=== PATIENT | female | born 2000 | race Caucasian/White ===

== ENCOUNTER 2020-11-30 09:31 | Emergency (ER) | payer SELFPAY ==
--- NOTE | 2020-11-30 09:56 | EKG REPORT ---
SEVERITY:- BORDERLINE ECG - SINUS RHYTHM : Confirmed by: Colby Camargo MD 30-Nov-2020 09:56:41
--- NOTE | 2020-11-30 10:18 | ER Document Report ---
ED Medical Screen (RME) - General Chief Complaint: Palpitations Stated Complaint: HEART PALPITATIONS Time Seen by Provider: 11/30/20 10:01 - HPI Notes: 11/30/20 10:03 20-year-old female presents to ED for evaluation of palpitations starting yesterday. Notes that she has been tracking them on her watch. Notes that they have not been sustained. Denies cold or cough symptoms. Denies thyroid issues. Denies chest pain. - Related Data Allergies/Adverse Reactions: Penicillins Allergy (Severe, Verified 11/30/20 09:50) Hives cephalexin [From Keflex] Allergy (Verified 11/30/20 09:50) Hives Home Medications: montelukast prn for allergies Past Medical History - Social History Chew tobacco use (# tins/day): No Frequency of alcohol use: Occasional Drug Abuse: None Physical Exam - Vital signs Vitals: Temp Pulse Resp BP Pulse Ox 98.5 F 95 16 148/94 H 100 11/30/20 09:40 11/30/20 09:40 11/30/20 09:40 11/30/20 09:40 11/30/20 09:40 General: No acute distress. Alert and oriented x3. Sitting comfortably in a stretcher. Skin: No jaundice, pallor, petechiae, or rashes. Warm and dry. Heart: Regular rate and rhythm. S1,S2. No murmurs, rubs, or gallops. Lungs: Clear to auscultation bilaterally. No wheezes, rhonchi, rales. Equal chest expansion. No retractions. Abdomen: Soft, nontender to palpation, nondistended. Positive bowel sounds in all 4 quadrants. No masses. No CVA tenderness bilaterally. Back: No midline spinal TTP. No paraspinous muscular TTP. Neuro: GCS 15. Moving all extremities without discomfort. Psych: Mood and affect appropriate. Course - Vital Signs Vital signs: Temp Pulse Resp BP Pulse Ox 98.5 F 95 16 148/94 H 100 11/30/20 09:40 11/30/20 09:40 11/30/20 09:40 11/30/20 09:40 11/30/20 09:40
[2020-11-30 10:30] LABS: ABSOLUTE EOSINOPHILS # (AUTO) 0.1 10^3/uL (0.0-0.6); ABSOLUTE LYMPHOCYTES (AUTO) 1.5 10^3/uL (0.5-4.7); ABSOLUTE MONOCYTES (AUTO) 0.3 10^3/uL (0.1-1.4); ABSOLUTE NEUT (AUTO) 2.6 10^3/uL (1.7-8.2); BASOPHILS % (AUTO) 0.7 % (0-2); EOSINOPHILS % (AUTO) 1.2 % (0-6); HEMATOCRIT 39.3 % (36.0-47.0); HEMOGLOBIN 12.9 g/dL (12.0-15.5); LYMPHOCYTES % (AUTO) 33.9 % (13-45); MEAN CORPUSCULAR HEMOGLOBIN 28.5 pg (27.0-33.4); MEAN CORPUSCULAR HGB CONC 32.8 g/dL (32.0-36.0); MEAN CORPUSCULAR VOLUME 87 fl (80-97); MONOCYTES % (AUTO) 6.4 % (3-13); PLATELET COUNT 243 10^3/uL (150-450); RED BLOOD COUNT 4.53 10^6/uL (3.72-5.28); RED CELL DISTRIBUTION WIDTH 12.7 % (11.5-14.0); SEGMENTED NEUTROPHILS % (AUTO) 57.8 % (42-78); TOTAL CELLS COUNTED % (AUTO) 100 %; WHITE BLOOD COUNT 4.5 10^3/uL (4.0-10.5)
--- NOTE | 2020-11-30 10:49 | ER Document Report ---
ED Cardiac - General Chief Complaint: Palpitations Stated Complaint: HEART PALPITATIONS Time Seen by Provider: 11/30/20 10:01 Mode of Arrival: Ambulatory Information source: Patient - HPI Notes: Patient presents complaint of palpitations. She states that she has had them several times over the last week. She states this morning when she got to work she felt that her heart was racing and they took her vital signs. At that time her pulse was in the 140s. Her blood pressure was 150/90. She states she has no previous history of high blood pressure. No previous history of any type of arrhythmias or heart disease. She has no chronic medical problems. No history of surgeries. She does not take any type of hormones. Patient states she does vape and that she did vape this morning at approximately 7 AM. She denies any other type of illicit drug use. No energy drinks. - Related Data Allergies/Adverse Reactions: Penicillins Allergy (Severe, Verified 11/30/20 09:50) Hives cephalexin [From Keflex] Allergy (Verified 11/30/20 09:50) Hives Home Medications: montelukast prn for allergies Past Medical History - General Information source: Patient - Social History Smoking Status: Current Every Day Smoker Chew tobacco use (# tins/day): No Frequency of alcohol use: Occasional Drug Abuse: None Family History: Reviewed & Not Pertinent Patient has homicidal ideation: No Review of Systems - Review of Systems Constitutional: denies: Chills, Fever Cardiovascular: Palpitations. denies: Chest pain Respiratory: denies: Cough, Short of breath -: Yes All other systems reviewed and negative Physical Exam - Vital signs Vitals: Temp Pulse Resp BP Pulse Ox 98.5 F 95 16 148/94 H 100 11/30/20 09:40 11/30/20 09:40 11/30/20 09:40 11/30/20 09:40 11/30/20 09:40 Interpretation: Normal - General General appearance: Appears well, Alert - HEENT Head: Normocephalic, Atraumatic Eyes: Normal Pupils: PERRL - Respiratory Respiratory status: No respiratory distress Chest status: Nontender Breath sounds: Normal Chest palpation: Normal - Cardiovascular Rhythm: Regular Heart sounds: Normal auscultation Murmur: No - Abdominal Inspection: Normal Distension: No distension Bowel sounds: Normal Tenderness: Nontender Organomegaly: No organomegaly - Back Back: Normal, Nontender - Extremities General upper extremity: Normal inspection, Nontender, Normal color, Normal ROM, Normal temperature General lower extremity: Normal inspection, Nontender, Normal color, Normal ROM, Normal temperature, Normal weight bearing. No: Kait's sign - Neurological Neuro grossly intact: Yes Cognition: Normal Orientation: AAOx4 Joseph Coma Scale Eye Opening: Spontaneous Joseph Coma Scale Verbal: Oriented [place] Coma Scale Motor: Obeys Commands Joseph Coma Scale Total: 15 Speech: Normal Motor strength normal: LUE, RUE, LLE, RLE Sensory: Normal - Psychological Associated symptoms: Normal affect, Normal mood - Skin Skin Temperature: Warm Skin Moisture: Dry Skin Color: Normal Course - Re-evaluation Re-evalutation: 11/30/20 10:47 Patient presents with palpitations. Her PERC score is negative. Patient is in a normal sinus rhythm at this time. I am suspicious this is secondary to vaping and I have educated the patient about this. I have also referred her to cardiology, Dr. Veronica. I have instructed her that if she has any further episodes she should discuss with Dr. Veronica the possibility of having an event monitor placed. - Vital Signs Vital signs: Temp Pulse Resp BP Pulse Ox 98.5 F 95 13 128/90 H 100 11/30/20 09:40 11/30/20 09:40 11/30/20 10:17 11/30/20 10:17 11/30/20 10:28 - Laboratory Results Result Diagrams: 11/30/20 10:13 11/30/20 10:13 Critical Laboratory Results Reviewed: No Critical Results - Radiology Results Critical Radiology Results Reviewed: No Critical Results - EKG Interpretation by Me EKG shows normal: Sinus rhythm Rate: Normal - 85 Rhythm: NSR [place]/QRS: No: Right axis deviation, Left axis deviation Discharge - Discharge Clinical Impression: Palpitations Condition: Stable Disposition: HOME, SELF-CARE Instructions: Palpitations (Irregular or Rapid Heartrate) (COUNT INCLUDES THE [facility]) Additional Instructions: Please try to stop vaping. If you have further episodes I would suggest you follow-up with a candy supervisor, such as Dr. Veronica, and discuss an event monitor being placed. Forms: Return to Work Referrals: TREVON VERONICA MD [ACTIVE STAFF] - Follow up in 3-5 days
[2020-11-30 10:58] LABS: ALKALINE PHOSPHATASE 48 U/L (38-126); ANION GAP 8 (5-19); ASPARTATE AMINO TRANSFERASE 22 U/L (14-36); BILIRUBIN,DIRECT 0.1 mg/dL (0.0-0.4); BILIRUBIN,TOTAL 0.6 mg/dL (0.2-1.3); BLOOD UREA NITROGEN 8 mg/dL (7-20); CALCIUM 9.8 mg/dL (8.4-10.2); CARBON DIOXIDE 25 mmol/L (22-30); CHLORIDE 105 mmol/L (98-107); CREATINE KINASE 91 U/L (30-135); GLUCOSE 90 mg/dL (75-110); POTASSIUM 4.9 mmol/L (3.6-5.0); TOTAL PROTEIN 8.1 g/dL (6.3-8.2)
[2020-11-30 11:05] LABS: CREATINE KINASE MB 0.48 ng/mL (<4.55)
--- NOTE | 2020-11-30 11:08 | RADIOLOGY REPORT (SQ) ---
EXAM DESCRIPTION: CHEST 2 VIEWS IMAGES COMPLETED DATE/TIME: 11/30/2020 10:32 am REASON FOR STUDY: palpitations COMPARISON: None. EXAM PARAMETERS: NUMBER OF VIEWS: two views TECHNIQUE: Digital Frontal and Lateral radiographic views of the chest acquired. RADIATION DOSE: NA LIMITATIONS: none FINDINGS: LUNGS AND PLEURA: No opacities, masses or pneumothorax. No pleural effusion. MEDIASTINUM AND HILAR STRUCTURES: No masses or contour abnormalities. HEART AND VASCULAR STRUCTURES: Heart normal size. No evidence for failure. BONES: No acute findings. HARDWARE: None in the chest. OTHER: No other significant finding. IMPRESSION: NO ACUTE RADIOGRAPHIC FINDING IN THE CHEST. TECHNICAL DOCUMENTATION: JOB ID: [id number] 2010 [employer]- All Rights Reserved Reading location - IP/workstation name: [email or web address]
[2020-11-30 11:09] LABS: TROPONIN I < 0.012 ng/mL
[2020-11-30 11:16] VITALS: BP 115/84
== END 2020-11-30 11:10 | disposition home or self-care (01) ==
LOC: ER 09:31
DX: R00.2 Palpitations (principal); F17.290 Nicotine dependence, other tobacco product, uncomplicated; Z88.0 Allergy status to penicillin; Z88.3 Allergy status to other anti-infective agents
CPT/HCPCS: 36415; 71046; 80053; 81025; 82550; 82553; 84443; 84484; 85025; 93005; 93010; 99285